=== PATIENT | female | born 1960 | race Caucasian/White ===

== ENCOUNTER → 2018-03-27 | Outpatient (CLI) | payer BC, OTHER ==
[~2018-03-27] MED LIST: COZAAR 25MG25 MG/TAB PO; ESTRODIL; NORVASC 5MG5 MG/TAB PO; SYNTHROID0.075 MG/T PO; SYNTHROID0.112 MG/T PO
== END ==
LOC: MC.RAD 07:25
DX: Z12.31 Encounter for screening mammogram for malignant neoplasm of breast (principal)

== ENCOUNTER → 2019-06-11 | Outpatient (CLI) | payer BC | LOC: MC.RAD 05-15 13:45 | DX: Z12.31 Encounter for screening mammogram for malignant neoplasm of breast (principal) ==

== ENCOUNTER → 2021-08-03 | Outpatient (CLI) | payer BC | LOC: MC.RAD 07:30 | DX: Z12.31 Encounter for screening mammogram for malignant neoplasm of breast (principal) ==

== ENCOUNTER → 2023-08-04 | Day surgery (SDC) | payer BC ==
[~2023-08-04] VITALS: Ht 157.5 cm; Wt 101.4 kg
[~2023-08-04] MED LIST changes: +CALCIUM 600600 MG PO; +COMPLETE MULTI1 TAB PO; +COZAAR 50MG50 MG/TAB PO; +HCTZ12.5TAB PO; +INDERAL 10MG10 MG PO; +LR 1,000 ML IV SCH; +Ondansetron 4 MG/2 ML VIAL IV PRN; -SYNTHROID0.075 MG/T PO; +SYNTHROID0.088 MG/T PO; +VITAMINC1000TA PO; +VITAMIND3 5000 PO
[2023-08-04 09:28] VITALS: BP 120/69; PULSE 59; TEMP 97.4
--- NOTE | 2023-08-04 09:51 | NUR ---
The patient ambulated back to [place] [facility] independently using a steady gait and appeared to tolerate the activity well. Vital signs obtained. Consent signed. 20G IV started in right anecubital with one stick, LR Infusing without difficulty. Assessment completed. Home medications reconcilled. Call light is within reach. , Juanito, is at her bedside. Warm blanket provided to the patient and her . Denies any further needs at this time.
[2023-08-04 11:06] VITALS: BP 110/70; PULSE 74
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
== END ==
LOC: SDCO 09:14
DX: Z12.11 Encounter for screening for malignant neoplasm of colon (principal)
CPT/HCPCS: J2704; J7120